=== PATIENT | male | born 1960 | race Caucasian/White ===

== ENCOUNTER → 2023-06-03 07:26 | Outpatient (REF) | payer BC, SELFPAY ==
[2023-06-03 10:56] LABS: Blood Urea Nitrogen 17 mg/dl (9-20); Calcium 9.6 mg/dl (8.4-10.2); Carbon Dioxide 23 mmol/L (22-30); Chloride 104 mmol/L (98-107); Glucose 141 mg/dl (70-99); Potassium 4.6 mmol/L (3.5-5.1); Sodium 134 mmol/L (135-145); eGFR > 60.00
== END ==
LOC: REG 07:26
PROVIDERS: ATTENDING PHYSICIAN Registered Nurse
DX: E11.65 Type 2 diabetes mellitus with hyperglycemia (principal)
CPT/HCPCS: 36415; 80048

== ENCOUNTER 2023-06-08 05:56 | Day surgery (SDC) | payer BC, SELFPAY ==
--- NOTE | 2023-05-05 10:59 | CM ---
Patient is scheduled for an elective L TKR on 06/08/23- he is a same day patient. Spoke with patient prior to surgery. Introduced role of Orthopedic Navigator. Patient reports that he lives with his (who works at ) in a two story home. There
are three steps to enter and a flight of steps to the second floor. He currently functions independently. He plans to borrow a cane and rolling walker. He has never had [facility] services. PCP is Jung Sanders.
Discussed orthopedic program and post surgical plans. Reviewed that he will have [facility]N services initially and will then start outpatient PT. Patient selects [facility] (face sheet faxed to [facility] to facilitate confirmation of benefits) for his home care
needs and will come to for outpatient PT.
Patient is in agreement with plan and states that his will be home with him.
Patient will complete online education.
Plan: Orthopedic Navigator will remain available to assist with the care of patient and will reassess discharge needs after surgery.
[2023-05-18 08:05] LABS: % Basophils 0.7 % (0-2); % Eosinophils 1.9 % (0-6); % Immature Granulocytes 0.7 % (0-0.5); % Lymphocytes 41.1 % (20.5-51.1); % Neutrophils 48.6 % (42.2-75.2); Absolute Eosinophils 0.1 10^3/uL (0-0.7); Absolute Lymphocytes 1.7 10^3/uL (1.2-3.4); Absolute Monocytes 0.3 10^3/uL (0.1-0.6); Hematocrit 38.2 % (39.0-52.0); Hemoglobin 13.4 g/dL (13.0-18.0); Mean Corp Hgb Conc. 35.1 g/dL (33.0-37.0); Mean Corpuscular Volume 85.7 fL (80.0-94.0); Mean Platelet Volume 12.3 fL (7.4-10.4); Nucleated Red Blood Cells % 0 % (-); Platelet Count 121 10^3/uL (130-400); Red Blood Cell Count 4.46 10^6/uL (4.70-6.10); Red Cell Dist. Width 12.1 % (11.5-14.5); White Blood Cell Count 4.1 10^3/uL (4.8-10.8)
[2023-05-18 08:19] LABS: ALT (SGPT) 22 U/L (0-50); AST (SGOT) 25 U/L (17-59); Albumin 4.3 g/dl (3.5-5.0); Alkaline Phosphatase 70 U/L (38-126); Blood Urea Nitrogen 25 mg/dl (9-20); Calcium 9.5 mg/dl (8.4-10.2); Carbon Dioxide 26 mmol/L (22-30); Chloride 106 mmol/L (98-107); Glucose 237 mg/dl (70-99); HDL Cholesterol 43 mg/dl; Potassium 4.3 mmol/L (3.5-5.1); Sodium 136 mmol/L (135-145); Total Bilirubin 0.8 mg/dl (0.2-1.3); eGFR > 60.00
[2023-05-18 08:26] LABS: Triglyceride 454 mg/dl (10-149); Very Low Density Lipoprotein 90 mg/dl (0-30)
[2023-05-18 08:28] LABS: Total Cholesterol 320 mg/dl (50-199)
[2023-05-18 08:48] LABS: LDL Cholesterol, Direct 151 mg/dl
[2023-05-18 08:50] LABS: Glycohemoglobin (HgbA1c) 9.9 % (4.0-5.6)
--- NOTE | 2023-06-03 08:52 | HPS.HSE ---
Family Physician
-
Family Physician: ARMANDO Hammond
Chief Complaint
-
Advanced primary osteoarthritis of the left knee. Same-Day Surgery.
History of Present Illness
The patient is a 62-year-old male presenting today for advanced primary osteoarthritis of the left knee. The patient reports significant left knee pain secondary to this diagnosis. He notes that his current left knee pain is greatly
interfering with his activities of daily living and is overall impacting his quality of life. He has tried and failed multiple conservative treatment measures in the past for his left knee pain. These conservative treatment measures include activity
modification, self-directed therapeutic exercises, medical management with Tylenol and NSAIDs, and the application of ice and/or heat. Recent x-ray findings of the left knee demonstrated advanced osteoarthritis with significant lateral joint space
narrowing and periarticular spurs behind the patella. He was determined to be in need of a left total knee arthroplasty. He denies any current complaints today such as chest pain, shortness of breath, palpitations, nausea, vomiting, diarrhea,
lightheadedness, dizziness, cough, sore throat, or fever.
Medical History
Past Medical History
Past Medical History: Reports Other
Additional Past Medical History:
1. Osteoarthritis.
2. Hypertension.
3. Dyslipidemia.
4. Coronary artery disease, non-obstructive on cardiac catheterization 2008.
5. Mild left ventricular hypertrophy.
6. Newly diagnosed diabetes, A1c 9.9; improving with dietary changes and the initiation of Metformin.
7. GERD.
8. Diverticulosis.
9. Hemorrhoids.
10. Migraines.
11. Multilevel degenerative disc disease.
12. Lumbar stenosis with radiculopathy.
13. Childhood chickenpox and mumps.
14. Mild leukopenia.
15. Mild thrombocytopenia.
16. Mild hyponatremia.
17. Obesity, BMI 32.5.
Past Surgical History: Reports Other
Additional Past Surgical History:
1. Left ACL repair.
2. Bilateral knee meniscectomies.
3. Cardiac catheterization.
4. Colonoscopy.
Social History
Tobacco: Non-smoker
Alcohol: Occasional (on weekends primarily. )
Personal:
Living: Other (He lives with his in a 2 story home. )
Family History
Family History: Not pertinent
Allergies / Home Medications
Allergy/Medication List:
Home medications:
1. Atorvastatin 20 mg p.o. daily.
2. Lisinopril 5 mg p.o. daily.
3. Metformin 500 mg p.o. daily.
4. Multivitamin 1 tablet p.o. daily.
Allergies: No known allergies.
Review of Systems
-
A 12 point ROS was completed and negative except as noted: Yes
Physical Exam
Vital Signs
Blood pressure 136/82. Heart rate 62. Respirations 18. Pulse ox 99%.
Height 5 feet, 8.75 inches. Weight 99.2 kg. BMI 32.5.
Physical Exam
General: Well Developed, Well Nourished and No Apparent Distress
HEENT: NormoCephalic, Moist mucous membranes, Atraumatic and PERRLA
Respiratory: Clear
Cardiac: Regular Rhythm
GI: Soft, Non Tender, Non Distended and Other (Obese. )
Musculoskeletal: Other (Left knee: range of motion 5-115. Mild medial joint line tenderness. Lateral joint line tenderness. No patellar grind. Moderate effusion. Mild instability to varus stress. +1 instability to anterior drawer. Negative
Carrie's sign. Right knee: essentially unremarkable. )
Skin: Warm and Dry
Neuro: AO x 3 and Cranial Nerves Intact
Laboratory Results
-
05/18/23 07:50
05/18/23 07:50
Laboratory Results
Total Bilirubin 0.8 mg/dl (0.2-1.3) 05/18/23 07:50
AST 25 U/L (17-59) 05/18/23 07:50
ALT 22 U/L (0-50) 05/18/23 07:50
Alkaline Phosphatase 70 U/L (38-126) 05/18/23 07:50
Hemoglobin A1c 9.9 - improving with dietary changes and initiation of Metformin.
MRSA screen negative.
REPEAT DIAGNOSTIC STUDIES as of 06/03/2023: Sodium 134. Potassium 4.6. BUN 17. Creatinine 1.2. Glucose 141. Calcium 9.6.
EKG 06/03/2023: Sinus bradycardia. Left axis deviation. Inferior infarct, sited on or before 04/25/2008. Compared to the prior EKG of 04/25/2008, QRS has shifted left.
Echocardiogram 01/28/2023: Normal left ventricular size and systolic function. No regional wall motion abnormalities are seen. LV ejection fraction is 65% by Greenfield's biplane method of discs. Mild concentric left ventricular hypertrophy. Normal
diastolic function. Thickened and sclerotic trileaflet� aortic valve with normal leaflet excursion. Trace aortic regurgitation is seen. Since echocardiogram April 2003, there is no significant change.
Stress echocardiogram 03/11/2023: Normal treadmill stress echocardiogram at 10.5 METS. Low risk stress test. Mildly dilated aortic root.
�
Impression/Plan
-
CLEARANCES:
1. Primary medical, Flaco Crystal DO, pending.
Primary medical phone number: [phone].
2. Cardiology, Giovanni Harrell MD, cleared.
3. Dental waived.
IMPRESSION/PLAN:
1. Advanced primary osteoarthritis of the left knee in need of a left total knee arthroplasty by Dr. Aries Pritchett on 06/08/2023. The benefits and risks of the procedure have been explained to the patient. The patient understands these risks and
wishes to proceed.
2. DVT prophylaxis: Aspirin.
3. 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 In preparation for his procedure, he has
already been prescribed [place] 5/325 mg, 1-2 tablets every 6 hours as needed for moderate to severe post-operative pain. He will also utilize Acetaminophen 650 mg p.o. every 4 hours as needed for mild pain and Celebrex 200 mg p.o. daily. Steroids
such as Dexamethasone will be avoided due to his new-onset diabetes.
4. New-onset diabetes, A1c 9.9: A strict carbohydrate controlled diet has been advised nicholas-operatively for adequate wound healing and infection prevention. He will continue Metformin twice a day as advised by his primary care physician.
Patient's phone number: [phone].
Patient's contact (Donna Powell - Spouse): [phone].
[2023-06-03 10:23] VITALS: BMI 32.5
[2023-06-03 16:25] VITALS: BMI 32.5
[2023-06-08] VITALS (13 sets, daily range): BP systolic 105–139; BP diastolic 73–86; PULSE 60; O2SAT 100; BMI 32.5
[2023-06-08 06:22] LABS: Glucose - Point of Care 138 mg/dl (70-99)
[2023-06-08] MEDS: NORMOSOL-R 1000 IV (06:31)
[2023-06-08] MEDS: TYLENOL 650 MG PO (06:31)
[2023-06-08] MEDS: CELEBREX 200 MG PO (06:31)
[2023-06-08 09:00] LABS: Glucose - Point of Care 158 mg/dl (70-99)
--- NOTE | 2023-06-08 10:40 | CM ---
Patient had planned R TKR today. Met with patient and his at bedside to review discharge plans. Patient will be returning home today with services through [facility]. On , 06/10, patient will start outpatient PT at [facility].
Reviewed MD follow up in two weeks and patient has already scheduled his appointment.
Patient will need a rolling walker here issued; script obtained and given to RN for PT.
PT and [facility] were kept updated as to progress and discharge plans.
[2023-06-08] MEDS: ANCEF 5 IV (11:39)
== END 2023-06-08 12:40 | disposition home health service (06) ==
LOC: SDS 05:56
PROVIDERS: ATTENDING PHYSICIAN Specialist; FAMILY PHYSICIAN Registered Nurse; OTHER PHYSICIAN Internal Medicine Cardiovascular Disease
DX: M17.12 Unilateral primary osteoarthritis, left knee (principal)
CPT/HCPCS: 27447; 36415; 73560; 80053; 80061; 82962; 83036; 83721; 85025; 87070; 93005; 97116; 97161; C1713; C1776

== ENCOUNTER 2023-07-03 06:22 | Outpatient (RCR) | payer BC, SELFPAY | END 2023-07-03 23:59 | disposition home or self-care (01) | LOC: RPT 06:22 | PROVIDERS: ATTENDING PHYSICIAN Specialist; FAMILY PHYSICIAN Registered Nurse | DX: Z47.1 Aftercare following joint replacement surgery (principal); Z96.652 Presence of left artificial knee joint; Z73.6 Limitation of activities due to disability | CPT/HCPCS: 97010; 97110; 97112; 97116; 97162; 97530 ==

== ENCOUNTER 2023-08-03 07:50 | Outpatient (RCR) | payer BC, SELFPAY | END 2023-08-03 23:59 | disposition home or self-care (01) | LOC: RPT 07:50 | PROVIDERS: ATTENDING PHYSICIAN Specialist; FAMILY PHYSICIAN Registered Nurse | DX: Z47.1 Aftercare following joint replacement surgery (principal); Z96.652 Presence of left artificial knee joint; Z73.6 Limitation of activities due to disability | CPT/HCPCS: 97010; 97110; 97112; 97140; 97530 ==

== ENCOUNTER → 2023-08-06 10:01 | Outpatient (REF) | payer BC, SELFPAY ==
[2023-08-06 11:15] LABS: Microalbumin, Random Urine 2.3 mg/dl (0.6-1.7); Microalbumin/creatinine Ratio 38.2 mg/g
[2023-08-06 11:21] LABS: ALT (SGPT) 18 U/L (0-50); AST (SGOT) 22 U/L (17-59); Albumin 4.5 g/dl (3.5-5.0); Alkaline Phosphatase 74 U/L (38-126); Blood Urea Nitrogen 15 mg/dl (9-20); Calcium 10.1 mg/dl (8.4-10.2); Carbon Dioxide 27 mmol/L (22-30); Chloride 102 mmol/L (98-107); Glucose 169 mg/dl (70-99); HDL Cholesterol 53 mg/dl; LDL Cholesterol, Calculated 103 mg/dl; Potassium 4.6 mmol/L (3.5-5.1); Sodium 137 mmol/L (135-145); Total Bilirubin 0.7 mg/dl (0.2-1.3); Total Cholesterol 204 mg/dl (50-199); Total Protein 8.2 g/dl (6.3-8.2); Triglyceride 243 mg/dl (10-149); Very Low Density Lipoprotein 48 mg/dl (0-30); eGFR > 60.00
[2023-08-06 12:06] LABS: Glycohemoglobin (HgbA1c) 8.2 % (4.0-5.6)
== END ==
LOC: REG 10:01
PROVIDERS: ATTENDING PHYSICIAN Registered Nurse
DX: E11.65 Type 2 diabetes mellitus with hyperglycemia (principal); E78.5 Hyperlipidemia, unspecified
CPT/HCPCS: 36415; 80053; 80061; 82043; 82570; 83036

== ENCOUNTER 2023-08-18 06:57 | Outpatient (RCR) | payer BC, SELFPAY | END 2023-08-18 23:59 | disposition home or self-care (01) | LOC: RPT 06:57 | PROVIDERS: ATTENDING PHYSICIAN Specialist; FAMILY PHYSICIAN Registered Nurse | DX: Z47.1 Aftercare following joint replacement surgery (principal); Z96.652 Presence of left artificial knee joint; R26.2 Difficulty in walking, not elsewhere classified; Z73.6 Limitation of activities due to disability | CPT/HCPCS: 97110; 97112; 97140 ==

== ENCOUNTER → 2023-11-20 10:13 | Outpatient (REF) | payer BC, SELFPAY ==
[2023-11-20 12:05] LABS: ALT (SGPT) 20 U/L (0-50); AST (SGOT) 24 U/L (17-59); Albumin 4.4 g/dl (3.5-5.0); Alkaline Phosphatase 77 U/L (38-126); Blood Urea Nitrogen 20 mg/dl (9-20); Calcium 9.7 mg/dl (8.4-10.2); Carbon Dioxide 25 mmol/L (22-30); Chloride 105 mmol/L (98-107); Glucose 153 mg/dl (70-99); Potassium 4.5 mmol/L (3.5-5.1); Sodium 137 mmol/L (135-145); Total Bilirubin 0.9 mg/dl (0.2-1.3); Total Protein 7.8 g/dl (6.3-8.2); eGFR > 60.00
[2023-11-20 12:11] LABS: Glycohemoglobin (HgbA1c) 8.3 % (4.0-5.6)
== END ==
LOC: REG 10:13
PROVIDERS: ATTENDING PHYSICIAN Registered Nurse
DX: E11.65 Type 2 diabetes mellitus with hyperglycemia (principal)
CPT/HCPCS: 36415; 80053; 83036

== ENCOUNTER 2024-02-18 06:42 | Day surgery (SDC) | payer BC, SELFPAY ==
[2024-02-18] MEDS: PRED FORTE 1% EYE DROPS 1 DROP OPHTH (13:29)
[2024-02-18] MEDS: ALCAINE 0.5% EYE DROPS 1 DROP OPHTH (13:29)
[2024-02-18 13:30] VITALS: BMI 30.8
[2024-02-18] MEDS: CYCLOGYL 1% EYE DROPS 1 DROP OPHTH (13:30)
[2024-02-18] MEDS: ACUVAIL 1 DROPS OPHTH (13:30)
[2024-02-18] MEDS: AKTEN OPHTHALMIC GEL 1 ML OPHTH (13:30)
[2024-02-18 13:31] VITALS: BMI 30.8
[2024-02-18] MEDS: POLYTRIM OPHTHALMIC SOLUTION 1 DROP OPHTH (13:31)
[2024-02-18] MEDS: MYDRIACYL 1 DROP OPHTH (13:31)
[2024-02-18] MEDS: NEO-SYNEPHRINE 2.5% OPH SOL. 1 DROP OPHTH (13:31)
[2024-02-18 13:40] LABS: Glucose - Point of Care 136 mg/dl (70-99)
[2024-02-18 13:41] VITALS: BP 153/92
[2024-02-18 15:00] VITALS: BP 142/91
[2024-02-18 15:12] VITALS: BP 139/86
== END 2024-02-18 15:20 | disposition home or self-care (01) ==
LOC: SDS 06:42
PROVIDERS: ATTENDING PHYSICIAN Ophthalmology
DX: H25.12 Age-related nuclear cataract, left eye (principal)
CPT/HCPCS: 66984; 82962; V2632

== ENCOUNTER → 2024-02-23 07:50 | Outpatient (REF) | payer BC, SELFPAY ==
[2024-02-23 08:57] LABS: % Basophils 0.5 % (0-2); % Eosinophils 2.1 % (0-6); % Immature Granulocytes 0.3 % (0-0.5); % Lymphocytes 33.8 % (20.5-51.1); % Monocytes 7.7 % (1.7-9.3); % Neutrophils 55.6 % (42.2-75.2); Absolute Eosinophils 0.1 10^3/uL (0-0.7); Absolute Lymphocytes 1.3 10^3/uL (1.2-3.4); Absolute Monocytes 0.3 10^3/uL (0.1-0.6); Absolute Neutrophils 2.2 10^3/uL (1.4-6.5); Hematocrit 40.5 % (39.0-52.0); Hemoglobin 13.7 g/dL (13.0-18.0); Mean Corp Hgb Conc. 33.8 g/dL (33.0-37.0); Mean Corpuscular Hgb 29.2 pg (27.0-31.0); Mean Corpuscular Volume 86.4 fL (80.0-94.0); Mean Platelet Volume 11.9 fL (7.4-10.4); Nucleated Red Blood Cells % 0 % (-); Platelet Count 146 10^3/uL (130-400); Red Blood Cell Count 4.69 10^6/uL (4.70-6.10); Red Cell Dist. Width 12.7 % (11.5-14.5); White Blood Cell Count 3.9 10^3/uL (4.8-10.8)
[2024-02-23 09:23] LABS: ALT (SGPT) 23 U/L (0-50); AST (SGOT) 27 U/L (17-59); Albumin 4.9 g/dl (3.5-5.0); Alkaline Phosphatase 65 U/L (38-126); Blood Urea Nitrogen 23 mg/dl (9-20); Calcium 9.9 mg/dl (8.4-10.2); Carbon Dioxide 25 mmol/L (22-30); Chloride 101 mmol/L (98-107); Glucose 141 mg/dl (70-99); HDL Cholesterol 46 mg/dl; LDL Cholesterol, Calculated 171 mg/dl; Potassium 4.7 mmol/L (3.5-5.1); Sodium 139 mmol/L (135-145); Total Cholesterol 245 mg/dl (50-199); Total Protein 8.5 g/dl (6.3-8.2); Triglyceride 141 mg/dl (10-149); Very Low Density Lipoprotein 28 mg/dl (0-30); eGFR 56.13
[2024-02-23 09:54] LABS: PSA, Total - Screen 0.69 ng/ml (0.0-4.0); TSH Reflex To Free T4 0.69 uIU/ml (0.47-4.68)
[2024-02-23 10:27] LABS: Glycohemoglobin (HgbA1c) 8.4 % (4.0-5.6)
== END ==
LOC: REG 07:50
PROVIDERS: ATTENDING PHYSICIAN Registered Nurse
DX: Z12.5 Encounter for screening for malignant neoplasm of prostate (principal); E11.65 Type 2 diabetes mellitus with hyperglycemia; E78.5 Hyperlipidemia, unspecified
CPT/HCPCS: 36415; 80053; 80061; 83036; 84443; 85025; G0103

== ENCOUNTER → 2024-05-26 13:48 | Outpatient (REF) | payer BC, SELFPAY ==
[2024-05-26 14:44] LABS: ALT (SGPT) 25 U/L (0-50); AST (SGOT) 29 U/L (17-59); Albumin 4.9 g/dl (3.5-5.0); Alkaline Phosphatase 68 U/L (38-126); Blood Urea Nitrogen 20 mg/dl (9-20); Calcium 9.7 mg/dl (8.4-10.2); Carbon Dioxide 27 mmol/L (22-30); Chloride 101 mmol/L (98-107); Glucose 115 mg/dl (70-99); HDL Cholesterol 52 mg/dl; LDL Cholesterol, Calculated 180 mg/dl; Potassium 4.3 mmol/L (3.5-5.1); Sodium 137 mmol/L (135-145); Total Bilirubin 1.1 mg/dl (0.2-1.3); Total Cholesterol 268 mg/dl (50-199); Total Protein 8.5 g/dl (6.3-8.2); Triglyceride 183 mg/dl (10-149); Very Low Density Lipoprotein 36 mg/dl (0-30); eGFR 56.13
[2024-05-26 15:00] LABS: Microalbumin, Random Urine 0.7 mg/dl (0.6-1.7); Microalbumin/creatinine Ratio 26.4 mg/g
[2024-05-26 15:17] LABS: Glycohemoglobin (HgbA1c) 7.9 % (4.0-5.6)
== END ==
LOC: REG 13:48
PROVIDERS: ATTENDING PHYSICIAN Registered Nurse
DX: E11.65 Type 2 diabetes mellitus with hyperglycemia (principal); E78.5 Hyperlipidemia, unspecified
CPT/HCPCS: 36415; 80053; 80061; 82043; 82570; 83036